=== PATIENT | female | born 1950 ===

== ENCOUNTER 2017-07-03 18:34 | Inpatient (IN) | payer MEDICARE ==
[2017-07-03 23:11] VITALS: BP 155/76; BMI 30.6
--- NOTE | 2017-07-04 01:24 | NUR ---
Patient arrived by EMS at 22:50 accompanied by spouse, patient is alert and oriented X 4, hallucinations after medication change of men telling her to get out of the house, code status is full code, code word is peanutt, valuables sent home with spouse, consents signed, will continue to monitor.
[2017-07-04] MEDS ORDERED: ULTRAM50 MG PO (01:31)
[2017-07-04] MEDS ORDERED: LAMICTAL25 MG PO ×2 (01:33→01:41)
[2017-07-04] MEDS ORDERED: LOPRESSOR25 MG PO (01:34)
[2017-07-04] MEDS ORDERED: LITHIUM CARBON150 MG PO (01:34)
[2017-07-04] MEDS ORDERED: PRAVACHOL20 MG PO (01:35)
[2017-07-04] MEDS ORDERED: SYNTHROID100 MCG PO (01:36)
[2017-07-04] MEDS ORDERED: ZOLOFT100 MG PO (01:36)
[2017-07-04] MEDS ORDERED: LOMOTIL TABLET1 TAB PO (01:38)
[2017-07-04] MEDS ORDERED: MULTIPLE VITAMI1 TA1 PO (01:39)
[2017-07-04] MEDS ORDERED: SALAGEN5 MG PO (01:39)
[2017-07-04 05:31] LABS: APPEARANCE CLEAR (CLEAR); BILIRUBIN NEGATIVE (NEGATIVE); COLOR YELLOW (YELLOW); GLUCOSE NEGATIVE (NEGATIVE); KETONE NEGATIVE (NEGATIVE); NITRITE NEGATIVE (NEGATIVE); PROTEIN NEGATIVE (NEGATIVE); SPECIFIC GRAVITY 1.015 (1.005-1.020); UROBILINOGEN NORMAL (NORMAL)
[2017-07-04 07:01] LABS: BASOPHILS 0.3 % (0-2); EOSINOPHILS 3.3 % (0-7); HEMATOCRIT 35.7 % (36.0-48.0); HEMOGLOBIN 11.2 g/dL (12-16); IMMATURE GRANULOCYTES 0.3 % (0-5); LYMPHOCYTES 21.1 % (15-50); MCHC 31.4 g/dL (31.0-37.0); MCV 105.3 fL (80.0-100.0); MEAN PLATELET VOLUME 11.5 fL (7.4-10.4); MONOCYTES 4.7 % (2-11); NEUTROPHILS 70.3 % (40-80); PLATELET COUNT 240 10x3/uL (130-400); RBC 3.39 10x6/uL (4.00-5.40); RDW 14.1 % (11.5-14.5); WBC 11.8 10x3/uL (4.8-10.8)
[2017-07-04 07:27] LABS: ALBUMIN 2.9 g/dL (3.4-5.0); ANION GAP 11.4 mmol/L (8-16); BILIRUBIN - TOTAL 0.11 mg/dL (0.2-1.3); CALCIUM 9.6 mg/dL (8.5-10.1); CARBON DIOXIDE 24.9 mmol/L (21.0-32.0); CHOL - HDL RATIO 8.5 ratio (2.3-4.1); CREATININE - SERUM 1.5 mg/dL (0.6-1.3); LDL-HDL RATIO 4.7 ratio (1.5-3.5); POTASSIUM - SERUM 4.3 mmol/L (3.5-5.1); PROTEIN - SERUM 6.5 g/dL (6.4-8.2); THYROID STIMULATING HORMONE 2.08 uIU/mL (0.36-3.74)
[2017-07-04 08:10] VITALS: BP 137/74
[2017-07-04 09:46] VITALS: BMI 30.5
--- NOTE | 2017-07-04 12:54 | NUR ---
ORIENTED X 4.CALM AND COOPERATIVE.COMPLIANT WITH MEDS AND STAFF.VISITS WITH PEERS.AMBULATORY .WILL CONTINUE WITH PLANOF CARE,MONITOR FOR CHANGES AND STAFF.
[2017-07-04 19:30] VITALS: BP 131/62
--- NOTE | 2017-07-04 22:46 | NUR ---
B) patient alert and oriented X 4, calm and cooperative, social with staff and peers, follows unit miliue I) Administered scheduled medications, monitored for safety and for falls, R) Medication compliant, slight difficulty fall asleep, P) Continue plan of care.
[2017-07-05 08:19] VITALS: BP 168/78
[2017-07-05 20:00] VITALS: BP 146/74
--- NOTE | 2017-07-05 20:12 | NUR ---
RECEIVED IN DAYROOM. WALKING ABOUT SOCIALIZING WITH PEERS. CALM AND COOPERATIVE WITH CARE AND ASSESSMENTS. NO SIGNS OF HALLUCIANTIONS. ALERT AND ORIENTED. SITTING QUIETLY ON SOFA AT THIS TIME. CONTINUE PLAN OF CARE
[2017-07-06 08:00] VITALS: BP 142/77
[2017-07-06 08:14] VITALS: BMI 30.4
--- NOTE | 2017-07-06 09:30 | NUR ---
B) AWAKE, ALERT AND ORIENTED X3. CALM AND COOPERATIVE, NO HALLUCINATIONS NOTED. AMBULATES INDEPENDENTLY. SOCIALIZES WITH PEERS AND STAFF. I) ADMINISTERED PRESCRIBED MEDICATIONS, VSS, ASSESSMENT COMPLETED. R) COMPLIANT WITH MEDICASTIONS AND UNIT MILIEU. REDIRECT NEEDED. P) CONTINUE PLAN OF CARE.
[2017-07-06 11:36] LABS: BASOPHILS 0.2 % (0-2); EOSINOPHILS 2.8 % (0-7); HEMATOCRIT 36.5 % (36.0-48.0); HEMOGLOBIN 11.5 g/dL (12-16); IMMATURE GRANULOCYTES 0.2 % (0-5); LYMPHOCYTES 20.7 % (15-50); MCH 32.9 pg (26.0-34.0); MCHC 31.5 g/dL (31.0-37.0); MCV 104.3 fL (80.0-100.0); MEAN PLATELET VOLUME 11.8 fL (7.4-10.4); MONOCYTES 6.7 % (2-11); NEUTROPHILS 69.4 % (40-80); PLATELET COUNT 254 10x3/uL (130-400); RDW 14.4 % (11.5-14.5); WBC 11.5 10x3/uL (4.8-10.8)
[2017-07-06 12:05] LABS: ALBUMIN 3.1 g/dL (3.4-5.0); ANION GAP 15.1 mmol/L (8-16); BILIRUBIN - TOTAL 0.16 mg/dL (0.2-1.3); CALCIUM 9.6 mg/dL (8.5-10.1); CARBON DIOXIDE 23.5 mmol/L (21.0-32.0); CREATININE - SERUM 1.2 mg/dL (0.6-1.3); POTASSIUM - SERUM 4.6 mmol/L (3.5-5.1); PROTEIN - SERUM 6.9 g/dL (6.4-8.2)
--- NOTE | 2017-07-06 13:33 | PSY ---
PATIENT NAME:FAITH HURTADO MEDICAL RECORD: [id number] : 48 LOCATION:[facility] ADMISSION DATE: 07/03/17 ACCOUNT: [id number] PSYCHIATRIC EVALUATION DATE OF EVALUATION: 07/04/17 Psychiatric Evaluation IDENTIFYING DATA: The patient is 66 years old and she is admitted to the hospital on a voluntary basis. CHIEF COMPLAINT: Hallucinations. HISTORY OF PRESENT ILLNESS: The patient has a known history of bipolar disorder. She has been on lithium for 30 years and has maintained herself outside the hospital since that time. Her primary care physician took her off of the lithium and she immediately began to deteriorate. This was certainly not something unreasonable. I have certainly done the same thing in the past and sometimes had it work out well and sometimes not. The patient had been stable for decades on lithium. She was starting to develop renal insufficiency as well as an already established problem with hypothyroidism and given those circumstances, I do think that was an unreasonable thing to do, but almost immediately, the patient deteriorated. Her started her back on the lithium, but she did not improve and in fact, has been having some ongoing visual hallucinations. She went to the Emergency Room because of this and was subsequently admitted here. She denies that she would seek to harm herself or others. She denies any kind of substance abuse. PAST MEDICAL HISTORY: Significant for hypothyroidism and hypertension. PAST PSYCHIATRIC HISTORY: Significant for previous hospitalizations for mental illness, but this was decades ago in another state. In fact, she had been so stable. She had not even been seeing a psychiatrist until recently when she had a single appointment with a physician in [place], whose name she cannot even remember. FAMILY HISTORY: Unknown. SOCIAL HISTORY: The patient is . She worked in a [employer] in [place]. She lives in [place]. She has adult children. She has no history of legal entanglements or substance abuse. MENTAL STATUS EXAMINATION: The patient is awake, alert and oriented to person, place, time and somewhat to situation. Her mood is flat. Her affect is appropriate. Thought processes are goal directed. Memory, concentration and abstraction abilities are intact and she denies any active intent to harm herself or others as well as overt psychotic symptoms. ASSETS: Supportive family members. LIABILITIES: Limited insight. DIAGNOSTIC IMPRESSION: AXIS I: Bipolar disorder with psychosis. AXIS II: None. AXIS III: Hypertension, hypothyroidism. AXIS IV: Moderate stressors. AXIS V: Global assessment of functioning is 30. PLAN: At this time, the patient has a therapeutic lithium level of 1.08 mEq. She has a mild elevation in her BUN and creatinine that is mildly elevated at 1.5. I think weighing the relative risks and benefits that it is appropriate for her to be maintained on lithium given her longstanding stability with the medication and the modest increase in her creatinine clearance. I have discussed this with her and she is in agreement. I am going to keep her on the lithium. I am going to reduce the dose slightly. She is taking some other anticholinergic medications that may be contributing to her psychotic symptoms. I am going to stop them. Her long-term prognosis is guarded. TRANSINT:[id number] Voice Confirmation ID: [id number] DOCUMENT ID: [id number] RONIT DESOUZA MD at 1333 CC: [id number] DICTATION DATE: 07/04/17 1225 CANDY DIPPER: 07/04/17 1249 [facility] [place] [id number] [place] [address]
--- NOTE | 2017-07-06 13:50 | NUR ---
B) PATIENT ALERT AND ORIENTED X4, RESTING ON THE SOFA, CALM AND COOPERATIVE, CONTRACTS FOR SAFETY. I) ADMINISTERED PRESCRIBED MEDICATIONS, VSS, ASSESSMENT COMPLETED. R) MEDICATION COMPLIANT, MONITOR FOR SAFETY. P) CONTINUE PLAN OF CARE.
--- NOTE | 2017-07-06 14:09 | NUR ---
Nutrition Follow Up: Pt is eating 86% meal avg on a regular diet. +BM 07/05/17. Wt stable. Meds and labs reviewed. Rec continue current diet. RD following.
[2017-07-06 20:13] VITALS: BP 131/64
--- NOTE | 2017-07-06 23:58 | NUR ---
RECEIVED IN HALLWAY OUTSIDE OF NURSES STATION. ASKING FOR WASH CLOTH. CALM AND COOPERATIVE WITH CARE AND ASSESSMENTS. NO SIGNS OF HALLUCINATIONS. ALERT AND ORIENTED. ENCOURAEG TO EXPRESS NEEDS. UP IN ROOM WASHING HER HAIR AT THIS TIME. CONTINUE PLAN OF CARE
[2017-07-07 06:14] LABS: VITAMIN D 25 HYDROXY 24.6 ng/mL (30.0-100.0)
[2017-07-07 07:22] LABS: RAPID PLASMA REAGIN Non Reactive (Non Reactive)
[2017-07-07 08:00] VITALS: BP 130/68
--- NOTE | 2017-07-07 11:00 | NUR ---
B) AWAKE AND ORIENTED X 3. CALM AND COOPERATIVE WITH CARE. NO HALLUCINATIONS NOTED. I) ADMINISTERED PRESCRIBED MEDICATIONS, VSS, ASSESSMENT COMPLETED. R) COMPLIANT WITH TAKING MEDICATIONS. P) CONTINUE PLAN OF CARE.
--- NOTE | 2017-07-07 14:30 | PN ---
PATIENT:FAITH HURTADO MEDICAL RECORD: [id number] LOCATION:[facility] ADMISSION DATE: 07/03/17 PROGRESS NOTE DATE OF SERVICE: 07/06/2017 SUBJECTIVE: The patient's case was discussed with staff. She has no new complaint. OBJECTIVE: The patient is no longer having hallucinations and her mood is less labile. She says she is concerned about the effects of lithium on her kidneys and would prefer not to take it. This was discussed and there are some risks and benefits here, but I do not think it is an unreasonable decision. I will try her on Depakote. Hopefully, this will help. I am encouraged by the improvement I had seen so far, and I think most of it was probably related to lithium, but if significant changes need to be made in the patient's medications and there is real uncertainty about the effect, this is certainly a good environment which to try it. TRANSINT:[id number] Voice Confirmation ID: [id number] DOCUMENT ID: [id number] RONIT DESOUZA MD at 1430 CC: [id number] DICTATION DATE: 07/06/17 1352 NOZZLEMAN: 07/06/17 1417 ADM IN [facility] [address] [place] [address]
[2017-07-07 20:21] VITALS: BP 114/67
--- NOTE | 2017-07-08 00:48 | NUR ---
RECEIVED IN BEDROOM. RESTING IN BED WITH EYES CLOSED. SOCIAL WITH STAFF. ALERT AND ORIENTED AT TIMES. CALM AND COOPERATIVE WITH CARE AND ASSESSMENT. NO SIGNS OF HALLUCINATIONS. ENCOURAGE TO EXPRESS NEEDS. REDIRECT AND REORIENT NEEDED. RESTING IN BED WTIH EYES CLOSED AT THIS TIME. CONTINUE PLAN OF CARE.
--- NOTE | 2017-07-08 09:00 | NUR ---
REPORT RECEIVED AND CARE ASSUMED. CALM AND COOPERATIVE WITH CARE AND ASSESSMENT. REDIRECT AND REEORIENT DIRECTED. ADMINISTER PRESCRIBED MEDICATIONS. COMPLIANT WITH MEDICATIONS AND UNIT MILIEU. SHE SOCIALIZES WITH PEERS AND STAFF. MONITOR FOR SAFETY. CONTINUE PLAN OF CARE.
[2017-07-08 09:34] VITALS: BP 136/69
--- NOTE | 2017-07-08 13:00 | PN ---
PATIENT:FAITH HURTADO MEDICAL RECORD: [id number] LOCATION:[facility] ADMISSION DATE: 07/03/17 PROGRESS NOTE DATE OF SERVICE: 07/07/2017 SUBJECTIVE: The patient's case was discussed with staff. She has no new complaint. OBJECTIVE: The patient is in good behavioral control with no mood lability, no psychotic symptoms and no thoughts of harming herself or others. ASSESSMENT: Bipolar disorder. PLAN: The patient is tolerating her Depakote very well. I certainly would not anticipated being toxic, but I do not think she has had it long enough to check a meaningful level. Her long-term prognosis is guarded. Brief supportive and educational interventions were made. I did discuss her situation with her with her permission of course. TRANSINT:[id number] Voice Confirmation ID: [id number] DOCUMENT ID: [id number] RONIT DESOUZA MD at 1300 CC: [id number] DICTATION DATE: 07/07/17 1521 INFRASTRUCTURE DESIGN ENGINEER: 07/07/17 1610 ADM IN [place] [id number] [place] [id number]
[2017-07-08] MEDS ORDERED: DEPAKOTE500 MG PO (13:23)
[2017-07-08] MEDS ORDERED: MYLANTA / MAALO30 ML PO (13:24)
[2017-07-08] MEDS ORDERED: PROTONIX40 MG PO (13:24)
[2017-07-08] MEDS ORDERED: OXYTROL PATCH1 PATCH TRANSDERM (13:25)
[2017-07-08 19:36] VITALS: BP 117/62
--- NOTE | 2017-07-08 22:25 | NUR ---
RECEIVED IN GOMES. STANDING AT NURSES STATION. SOCIALIZING WITH STAFF AND PEERS. CALM AND COOPERATIVE [facility] CARE AND ASSESSMENT. MED COMPLIANT. NO SIGNS OF HALLUCINATIONS. ALERT AND ORIENTED. IN GOOD SPIRITS. ENCOURAGE TO EXPRESS NEEDS. RESTING IN BED WITH EYES CLOSED AT THIS TIME. CONTINUE PLAN OF CARE.
[2017-07-09 08:00] VITALS: BP 117/64
--- NOTE | 2017-07-09 10:14 | NUR ---
B) PATIENT IS AWAKE AND ALERT, SHE IS HAPPY TO BE GOING HOME TODAY, SHE AMBULATES INDEPENDENTLY AND SHE FOLLOWS DIRECTION AND CONVERSATION EASILY. I) FAXED MEDICATION LIST AND D/C ORDER TO DR. MAYA OFFICE, CALLED MEDICATIONS INTO [facility] [place] AND SHE REQUESTED ALL MEDS BE GENERIC. R) PATIENT IS COMPLIANT WITH MEDS AND UNIT MILIEU, SHE DID REQUEST [facility] THIS AM AFTER BREAKFAST AND SHE DID RECEIVE, SEE NOV. P) CONTINUE D/C PLAN.
--- NOTE | 2017-07-09 12:30 | NUR ---
PATIENT'S SPOUSE HERE TO PICK PATIENT UP AND MED LIST PROVIDED. PATIENT D/C'D HOME AND SHE IS OFF ASSISTED UNIT NOW.
--- NOTE | 2017-07-09 13:31 | PN ---
PATIENT:FAITH HURTADO MEDICAL RECORD: [id number] LOCATION:[facility] ADMISSION DATE: 07/03/17 PROGRESS NOTE DATE OF SERVICE: 07/08/2017 SUBJECTIVE: The patient's case was discussed with staff. She has no new complaint. OBJECTIVE: The patient denies intent to harm herself or others. She generally tolerates her medicines well. She has very limited insight about her situation. She has no evidence of acute or direct dangerousness. ASSESSMENT: No change in diagnoses. PLAN: I anticipate the patient can be transitioned out of the hospital tomorrow. Her long-term prognosis is guarded. Brief supportive and educational interventions were made. Followup is to be with her primary care physician and outpatient psychiatrist. TRANSINT:[id number] Voice Confirmation ID: [id number] DOCUMENT ID: [id number] RONIT DESOUZA MD at 1331 CC: [id number] DICTATION DATE: 07/08/17 1322 ANDROID PLATFORM DEVELOPER: 07/08/17 1403 ADM IN [place] [id number] [place] [id number]
--- NOTE | 2017-07-18 11:00 | DS ---
PATIENT:FAITH HURTADO :48 MEDICAL RECORD: [id number] DISCHARGE SUMMARY ADMISSION DATE: 07/03/17 DISCHARGE DATE: 07/09/17 IDENTIFYING DATA: The patient is 66 years old and she is admitted to the hospital on a voluntary basis secondary to hallucinations. The patient has a known history of bipolar disorder and has taken lithium for 30 years. She apparently maintained very well up until recently, when her primary care doctor took her off the lithium and she began to deteriorate almost immediately. With the patient having been stable for decades on lithium, it was certainly not an unreasonable thing to do, especially if she was starting to develop some signs of renal insufficiency; but clearly, the patient is legitimately ill and was stabilized on this medication. HOSPITAL COURSE: The patient was admitted to the hospital and comprehensively evaluated from both medical, psychological, and social standpoint. She was treated with Depakote, which she tolerated very well. She also was given antipsychotic and antidepressant medication, which she also responded to nicely. She was subsequently transitioned out of the hospital. DISCHARGE DIAGNOSES: AXIS I: Bipolar disorder with psychosis. AXIS II: None. AXIS III: Hypertension and hypothyroidism. AXIS IV: Moderate stressors. AXIS V: Global assessment of functioning is 40. PLAN: At the time of discharge, the patient was in good behavioral control and had little or no evidence of mood lability. She certainly had no evidence of acute dangerousness to herself or others. She was connected with an outpatient psychiatrist, whom she had seen once prior to being hospitalized and has another appointment coming up soon. Her long-term prognosis is guarded. I anticipate that she can be stabilized on the Depakote as she was stabilized acutely during this hospitalization. TRANSINT:[id number] Voice Confirmation ID: [id number] DOCUMENT ID: [id number] RONIT DESOUZA MD at 1100 CC: [id number] DICTATION DATE: 07/17/17 1233 SEAL MIXING OPERATOR: 07/17/17 1521 DIS IN 07/09/17 [facility] [address] [place] [address]
== END 2017-07-09 12:30 | disposition home or self-care (01) | DRG 885 ==
LOC: D.PSYCH 18:34
PROVIDERS: Family Medicine; ADMIT Psychiatry & Neurology Psychiatry
DX: F31.5 Bipolar disorder, current episode depressed, severe, with psychotic features (principal); I12.9 Hypertensive chronic kidney disease with stage 1 through stage 4 chronic kidney disease, or unspecified chronic kidney disease; N18.3 Chronic kidney disease, stage 3 (moderate); E03.9 Hypothyroidism, unspecified; E78.5 Hyperlipidemia, unspecified; D64.9 Anemia, unspecified; K21.9 Gastro-esophageal reflux disease without esophagitis; M79.7 Fibromyalgia; N32.81 Overactive bladder